=== PATIENT | male | born 1965 | race Caucasian/White ===

== ENCOUNTER → 2024-01-28 | Outpatient (CLI) | payer OTHER ==
[~2024-01-28] MED LIST: GLUC500; LORA10; OMEP20ER
[2024-01-28 16:03] LABS: Source, Urine Clean Catch
[2024-01-28 16:16] LABS: Bacteria Not Seen /hpf; Mucus Light (0-Heavy); Squamous Epithelial Cells Not Seen /hpf (Few); White Blood Cells, Urine 0-2 /hpf (0-5)
== END | disposition home or self-care (01) ==
LOC: LAB 15:59 → LAB SHORT 15:59
PROVIDERS: Chiropractor
DX: R31.9 Hematuria, unspecified (principal)
CPT/HCPCS: 81015; 87086